=== PATIENT | female | born 1985 | race Caucasian/White ===

== ENCOUNTER 2016-10-16 04:16 | Inpatient (IN) | payer BC ==
[2016-10-16] MEDS ORDERED: Nalbuphine 20 MG/1 ML Amp IVPUSH PRN (05:28)
[2016-10-16] MEDS ORDERED: Sodium Chloride 0.9% 10 ML Syringe FLUSH PRN (05:49)
[2016-10-16] MEDS ORDERED: Ondansetron 4 MG/2 ML SDV IVPUSH PRN (05:49)
[2016-10-16] MEDS ORDERED: Oxytocin/Lactated Ringers 10 UNIT/1,000 ML BAG IV ONE (05:51)
[2016-10-16] MEDS ORDERED: Lactated Ringers 1,000 ML IV SCH (06:00)
--- NOTE | 2016-10-16 06:54 | PCM.LDHP ---
L&D History of Present Illness - General Date of Service: 10/16/16 Admit Problem/Dx: Patient Status Order with Admit Dx/Problem 10/16/16 05:53 Patient Status [ADT] Routine Admission Diagnosis/Problem Admission Diagnosis/Problem Source of Information: Patient History Limitations: Reports: No Limitations - History of Present Illness Introduction:: 31 year old female here at 40w4d with active labor. Scheduled for induction at 7 am but presented at 4 am with painful contractions. 6 cm. Pain Score: 6 - Related Data Allergies/Adverse Reactions: Allergies Allergy/AdvReac Type Severity Reaction Status Date / Time cefprozil Allergy Hives Verified 10/16/16 05:27 clindamycin Allergy Rash Verified 10/16/16 05:27 levofloxacin [From Levaquin] Allergy Hives Verified 10/16/16 05:27 Penicillins Allergy Hives Verified 10/16/16 05:27 Sulfa (Sulfonamide Allergy Hives Verified 10/16/16 05:27 Antibiotics) sulfamethoxazole Allergy Hives Verified 10/16/16 05:27 [From Bactrim] trimethoprim [From Bactrim] Allergy Hives Verified 10/16/16 05:27 Past Medical History - Past Health History Medical/Surgical History: Denies Medical/Surgical History (splenectomy for ITP) : 4 Para: 3 LMP (Approximate): H&P Review of Systems - Review of Systems: Review Of Systems: See Below General: Reports: No Symptoms HEENT: Reports: No Symptoms Pulmonary: Reports: No Symptoms Cardiovascular: Reports: No Symptoms Gastrointestinal: Reports: No Symptoms Genitourinary: Reports: No Symptoms Musculoskeletal: Reports: No Symptoms Skin: Reports: No Symptoms Psychiatric: Reports: No Symptoms Neurological: Reports: No Symptoms Hematologic/Lymphatic: Reports: No Symptoms Immunologic: Reports: No Symptoms L&D Exam - Exam Exam: See Below - Vital Signs Weight: 92.533 kg - OB Specific Contraction Intensity: Mild to Moderate - Landry Score Landry Score Cervix Position: Midposition Landry Score Consistency: Soft Landry Score Dilation: > 5 cm Landry Score 's Station: -1 ,0 - Exam General: Alert, Oriented HEENT: Conjunctiva Clear Neck: Supple, Trachea Midline Cardiovascular: Regular Rate Abdomen: Normal Bowel Sounds Back Exam: Normal Inspection, Paraspinal Tenderness Skin: Warm, Dry, Intact Psychiatric: Alert, Normal Affect - Patient Data Lab Results Last 24 hrs: Laboratory Results - last 24 hr 10/16/16 Range/Units 06:00 WBC 11.16 H (3.98-10.04) K/mm3 RBC 4.44 (3.98-5.22) M/mm3 Hgb 13.8 (11.2-15.7) gm/L Hct 40.6 (34.1-44.9) % MCV 91.4 (79.4-94.8) fl MCH 31.1 (25.6-32.2) pg MCHC 34.0 (32.2-35.5) g/dl RDW Std Deviation 49.1 H (36.4-46.3) fL Plt Count 248 (182-369) K/mm3 MPV 11.8 (9.4-12.3) fl Neut % (Auto) 60.9 (34.0-71.1) % Lymph % (Auto) 26.4 (19.3-51.7) % Duchesne % (Auto) 11.7 (4.7-12.5) % Eos % (Auto) 0.5 L (0.7-5.8) Baso % (Auto) 0.3 (0.1-1.2) % Neut # (Auto) 6.79 H (1.56-6.13) K/mm3 Lymph # (Auto) 2.95 (1.18-3.74) K/mm3 Duchesne # (Auto) 1.31 H (0.24-0.36) K/mm3 Eos # (Auto) 0.06 (0.04-0.36) K/mm3 Baso # (Auto) 0.03 (0.01-0.08) K/mm3 Result Diagrams: 10/16/16 06:00 Problem List Initiated/Reviewed/Updated: Yes Orders Last 24hrs: Active Orders 24 hr Category Date Time Status Patient Status [ADT] Routine ADT 10/16/16 05:53 Active Activity as Tolerated [RC] PFP Care 10/16/16 05:49 Active Communication Order [RC] ASDIRECTED Care 10/16/16 05:49 Active Heart Tones [RC] ASDIRECTED Care 10/16/16 05:49 Active Notify Provider [RC] PFP Care 10/16/16 05:49 Active Notify Provider [RC] PRN Care 10/16/16 05:49 Active Peripheral IV Care [RC] . DIRECTED Care 10/16/16 05:49 Active Vital Signs [RC] PER UNIT ROUTINE Care 10/16/16 05:49 Active TYPE AND SCREEN [BBK] Routine Lab 10/16/16 05:49 Ordered Lactated Ringers [Ringers, Lactated] 1,000 ml Med 10/16/16 06:00 Active IV ASDIRECTED Nalbuphine [Nubain] Med 10/16/16 05:28 Active 10 mg IVPUSH Q3H PRN Ondansetron [Zofran] Med 10/16/16 05:49 Active 4 mg IVPUSH Q4H PRN Oxytocin/Lactated Ringers [Pitocin in LR 10 Units/1,000 Med 10/16/16 05:51 Active ML] 10 unit in 1,000 ml IV ONETIME Sodium Chloride 0.9% [Saline Flush] Med 10/16/16 05:49 Active 10 ml FLUSH ASDIRECTED PRN Electronic Heart Tones Ext w TOCO [WOMSER] Oth 10/16/16 05:49 Ordered Routine Electronic Heart Tones Internal [WOMSER] Per Unit Oth 10/16/16 05:49 Ordered Routine Peripheral IV Insertion Adult [OM.PC] Routine Oth 10/16/16 05:49 Ordered Resuscitation Status Routine Resus Stat 10/16/16 05:49 Ordered Medication Orders Lactated Ringer's (Ringers, Lactated) 1,000 mls @ 100 mls/hr IV ASDIRECTED YONY Oxytocin/Lactated Ringer's (Pitocin In Lr 10 Units/1,000 Ml) 10 unit in 1,000 mls @ 500 mls/hr IV ONETIME ONE Stop: 10/16/16 07:50 Nalbuphine HCl (Nubain) 10 mg IVPUSH Q3H PRN PRN Reason: Pain Last Admin: 10/16/16 05:37 Dose: 10 mg Ondansetron HCl (Zofran) 4 mg IVPUSH Q4H PRN PRN Reason: Nausea/Vomiting Sodium Chloride (Saline Flush) 10 ml FLUSH ASDIRECTED PRN PRN Reason: Keep Vein Open Assessment/Plan Comment:: Active labor. Doing well. Desires nubain. Anticipate .
[2016-10-16] MEDS ORDERED: Lanolin 100% Cream 7 GM Tube TOP PRN (11:04)
[2016-10-16] MEDS ORDERED: Acetaminophen 325 MG Tab PO PRN (11:04)
[2016-10-16] MEDS: Ibuprofen 600 MG Tab PO PRN ×2 (15:03→21:36)
[2016-10-17 05:00] VITALS: BP 121/70
--- NOTE | 2016-10-17 07:00 | PCM.DCSUM1 ---
Discharge Summary - Hospital Course Brief History: term . Presented in active labor - Discharge Data Discharge Date: 10/17/16 Discharge Disposition: Home, Self-Care 01 Condition: Good - Patient Summary/Data Hospital Course: Unremarkable course. - Patient Instructions Diet: Usual Diet as Tolerated Activity: No Strenuous Activities Driving: May Drive Today Showering/Bathing: May Shower Notify Provider of: Fever, Increased Pain, Swelling and Redness, Drainage, Nausea and/or Vomiting - Discharge Plan Referrals: Kathy Malone MD [Primary Care Provider] - (6 weeks) - Discharge Summary/Plan Comment DC Time >30 min.: No - Patient Data Vitals - Most Recent: Last Vital Signs Temp 36.1 C 10/17/16 03:43 Pulse 71 10/17/16 03:43 Resp 15 10/17/16 03:43 BP 121/70 10/17/16 03:43 Pulse Ox 99 10/17/16 03:43 Weight - Most Recent: 92.533 kg I&O - Last 24 hours: Intake & Output 10/16/16 10/16/16 10/17/16 14:59 22:59 06:59 Intake Total 1360 Balance 1360 Lab Results - Last 24 hrs: Laboratory Results - last 24 hr 10/16/16 Range/Units 06:00 Blood Type O POSITIVE Gel Antibody Screen Negative Med Orders - Current: Current Medications Acetaminophen (Tylenol) 650 mg PO Q4H PRN PRN Reason: mild pain or fever Emollient Ointment (Lansinoh Hpa) 0 gm TOP ASDIRECTED PRN PRN Reason: Sore Nipples Last Admin: 10/16/16 15:03 Dose: 1 tube Ibuprofen (Motrin) 600 mg PO Q4H PRN PRN Reason: Mild pain or fever Last Admin: 10/16/16 21:36 Dose: 600 mg Discontinued Medications Lactated Ringer's (Ringers, Lactated) 1,000 mls @ 100 mls/hr IV ASDIRECTED YONY Oxytocin/Lactated Ringer's (Pitocin In Lr 10 Units/1,000 Ml) 10 unit in 1,000 mls @ 500 mls/hr IV ONETIME ONE Stop: 10/16/16 07:50 Last Admin: 10/16/16 08:21 Dose: 500 mls/hr Nalbuphine HCl (Nubain) 10 mg IVPUSH Q3H PRN PRN Reason: Pain Last Admin: 10/16/16 05:37 Dose: 10 mg Ondansetron HCl (Zofran) 4 mg IVPUSH Q4H PRN PRN Reason: Nausea/Vomiting Sodium Chloride (Saline Flush) 10 ml FLUSH ASDIRECTED PRN PRN Reason: Keep Vein Open *Q Meaningful Use (DIS) - VTE *Q VTE Criteria *Q: - Stroke *Q Stroke Criteria *Q: - AMI *Q AMI Criteria *Q:
[2016-10-17] MEDS: Ibuprofen 600 MG Tab PO PRN (09:36)
== END 2016-10-17 12:48 | disposition home or self-care (01) | DRG 560 ==
LOC: JD.OBCHECK 04:16 → JD.OB 04:16 → JD.OBCHECK 05:52 → JD.OB 05:53 → OBSVTOIN 06:36 → JD.OB 06:36
PROVIDERS: ADMIT Obstetrics & Gynecology; ATTEND Obstetrics & Gynecology
PROC: 10E0XZZ Delivery of Products of Conception, External Approach (ICD-10-PCS; principal; 2016-10-16)
DX: O80 Encounter for full-term uncomplicated delivery (principal); Z3A.41 41 weeks gestation of pregnancy; Z37.0 Single live birth; Z88.0 Allergy status to penicillin; Z88.1 Allergy status to other antibiotic agents; Z88.2 Allergy status to sulfonamides
CPT/HCPCS: 36415; 85025; 86850; 86900; 86901; A9270-GY; J2300; J2590

== ENCOUNTER 2019-12-13 19:15 | Emergency (ER) | payer BC ==
[2019-12-13 19:27] VITALS: BP 137/101; PULSE 130
--- NOTE | 2019-12-13 19:40 | EDM.PDOC ---
ED HPI GENERAL MEDICAL PROBLEM - General Chief Complaint: Allergic Reaction Stated Complaint: ALLERGIC REACTION Time Seen by Provider: 12/13/19 19:40 Source of Information: Reports: Patient History Limitations: Reports: No Limitations - History of Present Illness INITIAL COMMENTS - FREE TEXT/NARRATIVE: 34-year-old female presents to the ED covered with a very large hives. She s tates this occurred about 2 hours after eating noted sick to her restaurant last night. She has no known allergy to peanuts and is eaten them all her life. Therefore it is unclear what she developed an allergic to. Several foods were administered including seafoods which she has no known allergy to. She states for a while she did feel her throat somewhat closing up but she never developed any wheezing. She developed generalized erythema and severe generalized pruritus. Giant hives developed everywhere in her body overnight. She also developed significant diarrhea with estimated 10-12 loose watery highly acidic stools that even made her rectal bleed with wiping over the last 12 hours. She has never had this type of allergic reaction in the past. He states her voice is perhaps a little bit hoarse but she never did vomit. Did take some Zyrtec last night and some Benadryl and Zyrtec again this morning with no relief of symptoms. Onset: Sudden Onset Date: 12/13/19 Onset Time: 21:30 Duration: Hour(s):, Getting Worse Location: Reports: Generalized (With no respiratory embarrassment.) Quality: Reports: Other (Generalized urticaria and severe pruritus.) Severity: Severe Improves with: Reports: None (Zyrtec and Benadryl did little to relieve her symptoms.) Worsens with: Reports: Other (She took a hot shower this morning that made things much worse.) Context: Reports: Other (Symptoms started after she ate out at [employer] restaurant last night suggesting this is foodborne urticaria). 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) - Related Data Allergies Allergy/AdvReac Type Severity Reaction Status Date / Time cefprozil Allergy Hives Verified 12/12/17 00:14 clindamycin Allergy Rash Verified 12/12/17 00:14 levofloxacin [From Levaquin] Allergy Hives Verified 12/12/17 00:14 Penicillins Allergy Hives Verified 12/12/17 00:14 Sulfa (Sulfonamide Allergy Hives Verified 12/12/17 00:14 Antibiotics) sulfamethoxazole Allergy Hives Verified 12/12/17 00:14 [From Bactrim] trimethoprim [From Bactrim] Allergy Hives Verified 12/12/17 00:14 Home Meds: Home Meds Famotidine IV [Pepcid IV] 20 mg IV Q12HR #10 sdv 12/13/19 [Rx] predniSONE [Prednisone] 20 mg PO BID #10 tablet 12/13/19 [Rx] Past Medical History - Past Health History Medical/Surgical History: Denies 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: Hematologic History: Reports: Idiopathic Thrombocytopenia - Past Surgical History GI Surgical History: Reports: Other (See Below) Other GI Surgeries/Procedures: spleenectomy 1995 Social & Family History - Family History Family Medical History: Noncontributory - Tobacco Use Smoking Status *Q: Never Smoker - Caffeine Use Caffeine Use: Reports: Coffee, Soda - Recreational Drug Use Recreational Drug Use: No - Living Situation & Occupation Living situation: Reports: Occupation: Employed ED ROS ALLERGIC REACTION - Review of Systems Review Of Systems: See Below Constitutional: Reports: Malaise, Fatigue. Denies: Fever, Chills HEENT: Reports: No Symptoms Respiratory: Reports: No Symptoms Cardiovascular: Reports: No Symptoms Endocrine: Reports: No Symptoms GI/Abdominal: Reports: Diarrhea (She has had severe diarrhea 12-14 loose) : Reports: No Symptoms Musculoskeletal: Reports: No Symptoms Skin: Reports: Erythema (Severe generalized giant urticaria with generalized erythema.), Urticaria Neurological: Reports: No Symptoms Psychiatric: Reports: No Symptoms Hematologic/Lymphatic: Reports: No Symptoms Immunologic: Reports: No Symptoms ED EXAM GENERAL NO PERIP PULSE - Physical Exam Exam: See Below Exam Limited By: No Limitations General Appearance: Alert, WD/WN, Moderate Distress, Other (Patient has generalized erythema and giant hives everywhere. She has mild swelling of her upper and lower eyelids but not her lips. Temperature is 37.0 with a heart rate of 130 respiratory is 12 BP 137 101 O2 sats 98% on room air.) Eye Exam: Bilateral Eye: Other (Slight swelling of both upper eyelids.) Ears: Normal TMs Throat/Mouth: Other Head: Atraumatic (No swelling of her tongue or floor the mouth and the uvula is normal.), Normocephalic Neck: Normal Inspection, Supple, Non-Tender, Full Range of Motion. No: Lymphadenopathy (L) Respiratory/Chest: No Respiratory Distress, Lungs Clear, Normal Breath Sounds, No Accessory Muscle Use. No: Wheezing Cardiovascular: Normal Peripheral Pulses, Regular Rate, Rhythm, No Edema, No Gallop, No Murmur, No Rub GI/Abdominal: Soft, Non-Tender, No Organomegaly, No Abnormal Bruit, No Mass, Pelvis Stable, Abnormal Bowel Sounds Skin Exam: Erythema (She has generalized erythema and giant urticaria everywhere.) Course - Vital Signs Last Recorded V/S: Last Vital Signs Temp 37.0 C 12/13/19 19:26 Pulse 130 H 12/13/19 19:26 Resp 12 12/13/19 19:26 BP 137/101 H 12/13/19 19:26 Pulse Ox 98 12/13/19 19:26 - Orders/Labs/Meds Meds: Medications Discontinued Medications Generic Name Dose Route Start Last Admin Trade Name Freq PRN Reason Stop Dose Admin Diphenhydramine HCl 50 mg 12/13/19 19:45 12/13/19 19:54 Benadryl IVPUSH 12/13/19 19:46 50 mg ONETIME ONE Administration Famotidine 20 mg 12/13/19 19:45 12/13/19 19:54 Pepcid IVPUSH 12/13/19 19:46 20 mg ONETIME ONE Administration Dextrose/Lactated Ringer's 1,000 mls @ 999 mls/hr 12/13/19 19:45 12/13/19 19:54 Dextrose 5%-Lactated Ringers IV 999 mls/hr ASDIRECTED YONY Administration Methylprednisolone Sodium Succinate 125 mg 12/13/19 19:45 12/13/19 19:54 Solu-Medrol IVPUSH 12/13/19 19:46 125 mg ONETIME ONE Administration - Radiology Interpretation Free Text/Narrative:: 34-year-old female presents to the ED with an acute allergic reaction presumably to food or restaurant last night. She developed symptom complex within 2 hours of eating there last night this includes development of generalized pruritus generalized erythema and some hoarseness of her voice and then severe diarrhea all night long. She feels very dehydrated lightheaded and dizzy upon standing. Tongue is dry and coated. Plan D5 LR at open. Will be given Solu-Medrol 125 mg IV with Benadryl 50 mg IV and Pepcid 20 mg IV for allergic reaction. Tentatively she will be discharged home on prednisone 20 mg twice daily for 5 days to alleviate acute allergic response. - Re-Assessments/Exams Free Text/Narrative Re-Assessment/Exam: 12/13/19 21:03 patient is feeling much improved. The pruritus is 90% better. Erythema is fading swelling of her eyelids is dissipating. She still has hives however particular across her upper back and chest. When she has finished her liter of IV fluids she will be discharged home on Pepcid 20 mg twice daily for 5 days and prednisone 20 mg with breakfast and supper for the next 5 days as well. Benadryl 50 mg every 6 hours as needed. Departure - Departure Time of Disposition: 21:04 Disposition: Home, Self-Care 01 Condition: Fair Clinical Impression: Urticaria due to food allergy Acute allergic reaction Qualifiers: Encounter type: initial encounter Qualified Code(s): T78.40XA - Allergy, unspecified, initial encounter - Discharge Information *PRESCRIPTION DRUG MONITORING PROGRAM REVIEWED*: Not Applicable *COPY OF PRESCRIPTION DRUG MONITORING REPORT IN PATIENT CASI: Not Applicable Prescriptions: Famotidine IV [Pepcid IV] 20 mg IV Q12HR #10 sdv predniSONE [Prednisone] 20 mg PO BID #10 tablet Instructions: Allergies, Adult, [id number], Hives, [id number] Referrals: Raquel Bess MD [Primary Care Provider] - Forms: ED Department Discharge Additional Instructions: Evaluation in the emergency room tonight in regards to development of generalize d severe urticaria or hives associated with generalized severe redness with swelling of your upper and lower eyelids representing a severe allergic response. It was also associated with the development of significant prolific yellow watery diarrhea which is a manifestation of GI reaction to foodborne allergy. You were therefore treated with a liter of IV fluids to provide some degree of rehydration. Suggest continuing fluids such as Gatorade or Powerade at home tonight to further rehydrate. You were treated with Solu-Medrol 125 mg IV and Pepcid 20 mg IV and Benadryl 50 mg IV for allergic reaction. Treatment at home is to be prednisone 20 mg with breakfast and supper for 5 days with Pepcid 20 mg twice daily at the same time. Benadryl can still be used 50 mg every 6 hours as needed for relief of itch or return of hives if needed over the next few days. Avoid hot showers as heat will make the hives return or vigorous exercise will make the hives return as well. Return to the ED if you develop any troubles breathing or trouble swallowing which would be really rare. Sepsis Event Note (ED) - Evaluation Sepsis Screening Result: No Definite Risk - Focused Exam Vital Signs: Vital Signs Temp Pulse Resp BP Pulse Ox 12/13/19 19:26 37.0 C 130 H 12 137/101 H 98
[2019-12-13] MEDS ORDERED: Famotidine 20 MG/2 ML SDV IVPUSH ONE (19:45)
[2019-12-13] MEDS ORDERED: diphenhydrAMINE 50 MG/ML SDV IVPUSH ONE (19:45)
[2019-12-13] MEDS ORDERED: methylPREDNISolone Sodium Succinate 125 MG/2 ML SDV IVPUSH ONE (19:45)
[2019-12-13] MEDS ORDERED: Dextrose 5%-Lactated Ringers 1,000 ML IV SCH (19:45)
== END 2019-12-13 21:22 | disposition home or self-care (01) ==
LOC: JD.ED 19:15
DX: L50.0 Allergic urticaria (principal); T78.1XXA Other adverse food reactions, not elsewhere classified, initial encounter; Z88.8 Allergy status to other drugs, medicaments and biological substances; Z88.1 Allergy status to other antibiotic agents; Z88.0 Allergy status to penicillin; Z88.2 Allergy status to sulfonamides
CPT/HCPCS: 96361; 96374; 96375; 99283; J1200; J2930; J3490; J7121

== ENCOUNTER 2022-08-13 17:15 | Emergency (ER) | payer BC ==
[2022-08-13 17:46] VITALS: BP 143/92; PULSE 103
[2022-08-13] MEDS ORDERED: Rabies Immune Globulin PF 150 Units/ML 2 ML SDV IM ONE (18:16)
[2022-08-13] MEDS ORDERED: Rabies Immune Globulin/PF (HyperRAB) 300 UNIT/ML 5 ML SDV IM ONE (18:26)
[2022-08-13] MEDS ORDERED: Rabies Vaccine (Avian) 2.5 Unit Inj Kit IM ONE (18:27)
== END 2022-08-13 18:50 | disposition home or self-care (01) ==
LOC: JD.ED 17:15
DX: L30.9 Dermatitis, unspecified (principal); Z88.1 Allergy status to other antibiotic agents; Z88.0 Allergy status to penicillin; Z88.2 Allergy status to sulfonamides; Z23 Encounter for immunization; W64.XXXA Exposure to other animate mechanical forces, initial encounter
CPT/HCPCS: 90471; 96372; 99282; 99283-25